=== PATIENT | male | born 2000 | race Caucasian/White ===

== ENCOUNTER 2020-01-12 01:22 | Emergency (ER) | payer OTHER ==
[~2020-01-12] VITALS: Ht 193 cm; Wt 98.9 kg
[2020-01-12 02:45] VITALS: BP 117/62
== END 2020-01-12 02:48 | disposition home or self-care (01) ==
LOC: ED 01:52
DX: B35.6 Tinea cruris (principal); F17.200 Nicotine dependence, unspecified, uncomplicated
CPT/HCPCS: 99282